=== PATIENT | male | born 1965 | race Caucasian/White ===

== ENCOUNTER 2018-10-09 00:14 | Emergency (ER) | payer SELFPAY ==
--- NOTE | 2018-10-09 00:36 | ER Document Report ---
ED Medical Screen (RME) - General Chief Complaint: Abdominal Pain Stated Complaint: NAUSEA Time Seen by Provider: 10/09/18 00:32 Mode of Arrival: Wheelchair Information source: Patient Notes: 53-year-old male presented to ED for complaint of abdominal pain from gallbladder surgery on October 05. He states he was at divided at [facility]. He states she has been nauseated and not keeping food down. He states he took a food record that he had left at 10:00 tonight and has taken a few sips of apple constance since that. He does still have the Steri-Strips on his abdomen from his cholecystectomy. Abdomen is soft bowel sounds active. Patient has a history of high blood pressure, borderline personality disorder, bipolar, PTSD, paranoid personality, explosive disorder, he states he occasionally smokes pot but does not drink or smoke cigarettes. He does live with his family. I have greeted and performed a rapid initial assessment of this patient. A comprehensive ED assessment and evaluation of the patient, analysis of test results and completion of medical decision making process will be conducted by an additional ED providers. TRAVEL OUTSIDE OF THE [place] IN LAST 30 DAYS: No Physical Exam - Vital signs Vitals: Temp Pulse Resp BP Pulse Ox 97.7 F 93 17 151/105 H 100 10/09/18 00:24 10/09/18 00:24 10/09/18 00:24 10/09/18 00:24 10/09/18 00:24 Course - Vital Signs Vital signs: Temp Pulse Resp BP Pulse Ox 97.7 F 93 17 151/105 H 100 10/09/18 00:24 10/09/18 00:24 10/09/18 00:24 10/09/18 00:24 10/09/18 00:24
--- NOTE | 2018-10-09 00:50 | ER Document Report ---
ED General - General Chief Complaint: Abdominal Pain Stated Complaint: NAUSEA Time Seen by Provider: 10/09/18 00:32 Primary Care Provider: AKHIL DIAZ MD [ACTIVE STAFF] - Follow up in 3-5 days (or your primary care. ) Mode of Arrival: Wheelchair Notes: Patient is a 53-year-old male that presents to the emergency department for chief complaint of generalized abdominal pain after surgery. Patient recently had cholecystectomy on 10/05/2018. Reports his been having nausea, and genera lized abdominal pain, worse in the epigastric region, currently rates the pain as a 6 out of 10 describes it as a constant aching sensation, and has been getting worse. He had a few episodes of vomiting, he has had a bowel movement since his surgery. Denies any abdominal distention. Denies any fevers, chills, night sweats, chest pain, shortness of breath or difficulty breathing. He reports having his surgery performed in [place], [place]. Past Medical History: Hypertension Past Surgical History: Cholecystectomy Social History: Admits to rare alcohol use, denies tobacco or illicit drug use. Family History: Reviewed and noncontributory for presenting illness Allergies: Reviewed, see documented allergy list. REVIEW OF SYSTEMS: Other than noted above, the 12 point review of systems was reviewed with the patient and were negative, all pertinent findings are included in the HPI. PHYSICAL EXAMINATION: Vital signs reviewed, nursing noted reviewed. GENERAL: Patient appears uncomfortable, but in no acute distress HEAD: Atraumatic, normocephalic. EYES: Eyes appear normal, extraocular movements intact, sclera anicteric, conjunctiva are normal. ENT: nares patent, oropharynx clear without exudates. Moist mucous membranes. NECK: Normal range of motion, supple without lymphadenopathy LUNGS: Breath sounds clear to auscultation bilaterally and equal. No wheezes rales or rhonchi. HEART: Regular rate and rhythm without murmurs ABDOMEN: Soft, diffuse tenderness to palpation, worse in the epigastric region, normoactive bowel sounds. No rebound, guarding, or rigidity. No masses appreciated. Steri-Strips in place in the positions of the patient's laparoscopic sites, no erythema, or drainage noted. EXTREMITIES: Nontender, good range of motion, no pitting or edema. NEUROLOGICAL: No focal neurological deficits. Moves all extremities spontaneously Motor and sensory grossly intact on exam. PSYCH: Normal mood, normal affect. SKIN: Warm, Dry, normal turgor, no rashes or lesions noted on exposed skin TRAVEL OUTSIDE OF THE [place] IN LAST 30 DAYS: No - Related Data Allergies/Adverse Reactions: doxycycline [From Vibramycin] Allergy (Verified 10/09/18 00:52) Past Medical History - General Information source: Patient - Social History Smoking Status: Never Smoker Family History: Reviewed & Not Pertinent Physical Exam - Vital signs Vitals: Temp Pulse Resp BP Pulse Ox 97.7 F 93 17 151/105 H 100 10/09/18 00:24 10/09/18 00:24 10/09/18 00:24 10/09/18 00:24 10/09/18 00:24 Course - Re-evaluation Re-evalutation: Patient seen and examined vital signs reviewed. Laboratory data and/or imaging were ordered as appropriate for the patient's presenting symptoms and complaint, with consideration of any critical or life threatening conditions that may be associated with their obtained history and exam as noted above. Patient was treated with IV fluids, IV morphine and Zofran, he was given a total of 2 L IV fluids Results were reviewed when available and demonstrated elevated lipase, 599, not terribly elevated, and slightly elevated bilirubin, which would be expected after post cholecystectomy, no transaminitis, the patient's CBC was unremarkable, no leukocytosis, electrolytes unremarkable and CMP, obtain CT imaging of the abdomen and pelvis, which demonstrated expected intra-abdominal air status post laparoscopy, there is a question of fluid in the color fossa, which is to be expected as well, patient is not exhibiting signs of infection The patient was re-evaluated and was stable, improved, resting comfortably Evaluation was most consistent with post cholecystectomy, mild pancreatitis, advised clear liquid diet, pain control given prescription for oxycodone, Zofran, and Colace to take if he is taking pain medication. Advise follow-up with his surgeon, he is given an abdominal binder by request. Results were discussed with the patient at this point, after careful consideration I feel that that patient can be discharged from the emergency department, the patient was educated treatments and reasons to return to the emergency department based on their presumed diagnosis as noted above, they were advised to followup with a primary care physician in 2-3 days. Patient was agre eable to plan of care. *Note is created using voice recognition software and may contain spelling, syntax or grammatical errors. Laboratory 10/09/18 10/09/18 00:43 00:43 WBC 8.0 RBC 5.38 Hgb 17.2 H Hct 49.0 MCV 91 MCH 32.1 MCHC 35.1 RDW 13.2 Plt Count 204 Seg Neutrophils % 76.3 Lymphocytes % 15.2 Monocytes % 8.1 Eosinophils % 0.3 Basophils % 0.1 Absolute Neutrophils 6.1 Absolute Lymphocytes 1.2 Absolute Monocytes 0.6 Absolute Eosinophils 0.0 Absolute Basophils 0.0 Sodium 136.5 L Potassium 4.1 Chloride 95 L Carbon Dioxide 29 Anion Gap 13 BUN 13 Creatinine 0.74 Est GFR ( Amer) > 60 Est GFR (Non-Af Amer) > 60 Glucose 123 H Calcium 10.4 H Total Bilirubin 2.5 H Direct Bilirubin 0.6 H Neonat Total Bilirubin Not Reportable Neonat Direct Bilirubin Not Reportable Neonat Indirect Bili Not Reportable AST 30 ALT 42 Alkaline Phosphatase 148 H Total Protein 7.4 Albumin 4.5 Lipase 599.9 H Abdomen/Pelvis CT 10/09/18 02:11 IMPRESSION: Changes of a recent cholecystectomy with a moderate amount of free air and subcutaneous emphysema along the right side of the abdomen. Small amount of fluid and air within the gallbladder fossa. This may represent a biloma, seroma, or hematoma. A superimposed infection may be present. TECHNICAL DOCUMENTATION: Quality ID # 436: Final reports with documentation of one or more dose reduction techniques (e.g., Automated exposure control, adjustment of the mA and/or kV according to patient size, use of iterative reconstruction technique) copyright 2011 [employer]- All Rights Reserved - Vital Signs Vital signs: Temp Pulse Resp BP Pulse Ox 97.7 F 93 17 151/105 H 100 10/09/18 00:24 10/09/18 00:24 10/09/18 00:24 10/09/18 00:24 10/09/18 00:24 - Laboratory Result Diagrams: 10/09/18 00:43 10/09/18 00:43 Laboratory results interpreted by me: 10/09/18 10/09/18 00:43 00:43 Hgb 17.2 H Sodium 136.5 L Chloride 95 L Glucose 123 H Calcium 10.4 H Total Bilirubin 2.5 H Direct Bilirubin 0.6 H Alkaline Phosphatase 148 H Lipase 599.9 H Discharge - Discharge Clinical Impression: Status post cholecystectomy Pancreatitis Qualifiers: Chronicity: acute Pancreatitis type: unspecified pancreatitis type Acute pancreatitis complication: no infection or necrosis Qualified Code(s): K85.90 - Acute pancreatitis without necrosis or infection, unspecified Condition: Stable Disposition: HOME, SELF-CARE Instructions: Abdominal Pain ([facility]) Additional Instructions: Please take the antinausea and pain medication only if needed, if you are to take the pain medication you should take a stool softener, which has also been prescribed. Please follow-up with your surgeon, call for an appointment. I would recommend a clear liquid diet over the next 2-3 days, and slowly advancing her diet, to more solid food, but make it more of a limited diet including breads, soups, potatoes, and avoid fatty foods, which only makes symptoms worse. Prescriptions: Docusate Sodium [Colace] 100 mg PO BID #30 capsule Ondansetron [Zofran Odt 4 mg Tablet] 1 tab PO Q8H PRN #15 tab.rapdis PRN Reason: For Nausea/Vomiting Oxycodone HCl [Oxycontin Ir 5 Mg Tablet] 1 mg PO Q6H PRN #15 tablet PRN Reason: abdominal pain Referrals: AKHIL DIAZ MD [ACTIVE STAFF] - Follow up in 3-5 days (or your primary care. )
[2018-10-09] MEDS ORDERED: NORMAL SALINE 1000 ML 1,000 ML IV ONE (01:02)
[2018-10-09] MEDS ORDERED: ONDANSETRON HCL INJ/PF 4 MG/2 ML SDV IV ONE (01:02)
[2018-10-09] MEDS ORDERED: MORPHINE SULFATE 10 MG/ML INJ IV ONE (01:02)
[2018-10-09 01:06] LABS: ABSOLUTE LYMPHOCYTES (AUTO) 1.2 10^3/uL (0.5-4.7); ABSOLUTE MONOCYTES (AUTO) 0.6 10^3/uL (0.1-1.4); ABSOLUTE NEUT (AUTO) 6.1 10^3/uL (1.7-8.2); BASOPHILS % (AUTO) 0.1 % (0-2); EOSINOPHILS % (AUTO) 0.3 % (0-6); HEMOGLOBIN 17.2 g/dL (13.5-17.0); LYMPHOCYTES % (AUTO) 15.2 % (13-45); MEAN CORPUSCULAR HEMOGLOBIN 32.1 pg (27.0-33.4); MEAN CORPUSCULAR HGB CONC 35.1 g/dL (32.0-36.0); MEAN CORPUSCULAR VOLUME 91 fl (80-97); MONOCYTES % (AUTO) 8.1 % (3-13); PLATELET COUNT 204 10^3/uL (150-450); RED BLOOD COUNT 5.38 10^6/uL (4.35-5.55); RED CELL DISTRIBUTION WIDTH 13.2 % (11.5-14.0); SEGMENTED NEUTROPHILS % (AUTO) 76.3 % (42-78); TOTAL CELLS COUNTED % (AUTO) 100 %
[2018-10-09 02:07] LABS: ALANINE AMINOTRANSFERASE 42 U/L (21-72); ALBUMIN 4.5 g/dL (3.5-5.0); ALKALINE PHOSPHATASE 148 U/L (38-126); ANION GAP 13 (5-19); ASPARTATE AMINO TRANSFERASE 30 U/L (17-59); BILIRUBIN,DIRECT 0.6 mg/dL (0.0-0.4); BILIRUBIN,TOTAL 2.5 mg/dL (0.2-1.3); BLOOD UREA NITROGEN 13 mg/dL (7-20); CALCIUM 10.4 mg/dL (8.4-10.2); CARBON DIOXIDE 29 mmol/L (22-30); CHLORIDE 95 mmol/L (98-107); GLUCOSE 123 mg/dL (75-110); LIPASE 599.9 U/L (23-300); POTASSIUM 4.1 mmol/L (3.6-5.0); SODIUM 136.5 mmol/L (137-145); TOTAL PROTEIN 7.4 g/dL (6.3-8.2)
[2018-10-09] MEDS ORDERED: RINGERS SOLUTION,LACTATED 1,000 ML IV ONE (02:11)
--- NOTE | 2018-10-09 03:38 | RADIOLOGY REPORT (SQ) ---
EXAM DESCRIPTION: CT ABDOMEN PELVIS WITH IV CONTRAST COMPLETED DATE/TME: 10/09/2018 02:11 CLINICAL HISTORY: 53 years, Male, EPIGASTRIC ABDOMINAL PAIN, RECENT IRA COMPARISON: None. TECHNIQUE: Axial CT images of the abdomen and pelvis were obtained of the administration of IV contrast. Sagittal and coronal reformats were performed. DLP [id number] Images stored on PACS. All CT scanners at this facility use dose modulation, iterative reconstruction, and/or weight based dosing when appropriate to reduce radiation dose to as low as reasonably achievable (ALARA). [facility]: Dose Right [facility]: CareDose [facility]: Dose Right [facility]: Teradose 4D [facility]: Smart skyrockit LIMITATIONS: None. FINDINGS: Lung bases are clear. There is a moderate amount of intraperitoneal free air with subcutaneous emphysema particularly along the right side of the abdomen. The liver appears unremarkable. There are changes of a recent cholecystectomy with fluid and air noted within the gallbladder fossa. The pancreas, spleen, adrenal glands, and kidneys appear unremarkable. No evidence of urolithiasis or hydronephrosis. No lymphadenopathy. There is a trace amount of free fluid. The stomach, small bowel, appendix, and colon appear unremarkable. There are no lytic or blastic bone lesions.. IMPRESSION: Changes of a recent cholecystectomy with a moderate amount of free air and subcutaneous emphysema along the right side of the abdomen. Small amount of fluid and air within the gallbladder fossa. This may represent a biloma, seroma, or hematoma. A superimposed infection may be present. TECHNICAL DOCUMENTATION: Quality ID # 436: Final reports with documentation of one or more dose reduction techniques (e.g., Automated exposure control, adjustment of the mA and/or kV according to patient size, use of iterative reconstruction technique) copyright 2011 [email or web address]- All Rights Reserved
[2018-10-09 04:11] VITALS: BP 164/93
== END 2018-10-09 04:10 | disposition home or self-care (01) ==
LOC: ER 00:14
DX: K85.90 Acute pancreatitis without necrosis or infection, unspecified (principal); R10.84 Generalized abdominal pain; R11.0 Nausea; Z90.49 Acquired absence of other specified parts of digestive tract
CPT/HCPCS: 99284; 96361; 96374; 96375; 36415; 83690; 85025; 80053; 74177; J2270; J2405; J7030; J7120